=== PATIENT | male | born 2000 | race Caucasian/White ===

== ENCOUNTER 2022-10-16 21:39 | Emergency (ER) | payer MEDICAID, OTHER ==
[~2022-10-16] VITALS: Ht 177.8 cm; Wt 90.7 kg
[2022-10-16 22:11] VITALS: TEMP 98
[2022-10-16] MEDS ORDERED: ACETAMINOPHEN ES 500 MG TABLET ONE (22:28)
[2022-10-16] MEDS ORDERED: ACETAMINOPHEN 325 MG TABLET PO ONE (22:30)
[2022-10-16 23:15] VITALS: BP 130/77; O2SAT 99
--- NOTE | 2022-10-16 23:15 | NUR ---
PT IS A/O X 4, RR EVEN AND UNLABORED NO SOB NOTED. PT CALLED FAMILY. PT VSS, NO ACUTE DISTRESS NOTED AT THIS TIME. PT AMBULATED WITH STEADY GAIT.
[2022-10-16] MEDS ORDERED: KETOROLAC TROMETHAMINE INJ 30 MG/ML VIAL ONE (23:52)
[2022-10-16] MEDS ORDERED: IBUP-1953 PO (23:54)
[2022-10-16] MEDS ORDERED: TYL2T PO (23:54)
--- NOTE | 2022-10-16 23:59 | NUR ---
Patient discharged to home in stable condition. Written and verbal after care instructions given. Patient verbalizes understanding of instruction.
[2022-10-17] MEDS ORDERED: KETOROLAC TROMETHAMINE INJ 60 MG/2 ML VIAL IM ONE
== END 2022-10-17 | disposition home or self-care (01) ==
LOC: ER 21:41
DX: S00.81XA Abrasion of other part of head, initial encounter (principal); S09.8XXA Other specified injuries of head, initial encounter; Y08.89XA Assault by other specified means, initial encounter; Y93.89 Activity, other specified; Y92.89 Other specified places as the place of occurrence of the external cause; Y99.8 Other external cause status
CPT/HCPCS: 99285; 70450; 96372; 70486; J1885